=== PATIENT | female | born 1960 | race Caucasian/White ===

== ENCOUNTER 2020-08-15 08:02 | Outpatient (REF) | payer OTHER, SELFPAY ==
--- NOTE | ~2020-08-15 | US_ITS ---
EXAMINATION: US ABDOMEN COMPLETE CLINICAL INFORMATION: Acute abdominal pain. COMPARISON: None TECHNIQUE: Real-time imaging of the abdominal viscera. FINDINGS: PANCREAS: Normal. ABDOMINAL AORTA: The proximal, mid, and distal segments are normal in caliber. INFERIOR VENA CAVA: Visualized portions are normal. LIVER: Normal. The liver is normal in size. The liver contour is normal. Parenchymal echogenicity is normal. No focal hepatic lesion. There is no intrahepatic biliary duct dilatation seen. GALLBLADDER: Normal. The gallbladder is physiologically distended without evidence of stones, sludge, polyps, wall thickening or pericholecystic fluid. COMMON BILE DUCT: Normal in caliber measuring 0.2 cm in diameter. RIGHT KIDNEY: Normal. No hydronephrosis. No renal calculi or focal parenchymal lesions. The kidney measures 10.4 cm in maximum dimension. LEFT KIDNEY: Normal. No hydronephrosis. No renal calculi or focal parenchymal lesions. The kidney measures 11.7 cm in maximum dimension. SPLEEN: Normal. The spleen measures 9.3 cm in maximum dimension. FREE FLUID: None. US/US abdomen complete IMPRESSION: Unremarkable complete abdomen ultrasound.
[2020-08-15 09:37] LABS: MANUAL DIFF FLAG NO
[2020-08-15 09:45] LABS: Basophils Percent Auto 0.6 % (0-2); Eosinophils Absolute Auto 0.2 X10*3/uL (0.0-0.4); Eosinophils Percent Auto 4.7 % (0-4); Hematocrit 42.2 % (37-47); Hemoglobin 13.9 g/dl (12.0-16.0); Imm Gran Abs Auto 0.01 X10*3/uL (0.00-0.03); Imm Gran Pct Auto 0.2 % (0.0-0.4); Lymphocytes Percent Auto 38.5 % (20-40); Mean Corpuscular HGB Conc 32.9 g/dl (31.0-35.0); Mean Platelet Volume 10.6 fL (9.4-12.3); Monocytes Absolute Auto 0.5 X10*3/uL (0.1-1.2); Monocytes Percent Auto 9.9 % (2-11); Neutrophils Absolute Auto 2.4 X10*3/uL (2.0-8.3); Neutrophils Percent Auto 46.1 % (45-73); Platelet Count 235 X10*3/uL (160-400); Red Blood Count 4.35 X10*6/uL (4.20-5.50); Red Cell Distribution Width 12.1 % (11.0-16.0); White Blood Count 5.1 X10*3/uL (4.8-10.8)
[2020-08-15 10:36] LABS: Alanine Aminotransferase 14 U/L (0-31); Albumin Level 4.1 g/dL (3.5-5.0); Alkaline Phosphatase 65 U/L (39-117); Amylase 64 U/L (28-100); Aspartate Amino Transferase 20 U/L (5-31); Bilirubin Direct 0.3 mg/dL (0.0-0.5); Bilirubin Total 0.6 mg/dL (0.0-1.0); Total Protein 6.9 g/dL (6.5-8.0)
[2020-08-15 10:37] LABS: Lipase 16 U/L (8-78)
== END 2020-08-15 08:03 | disposition home or self-care (01) ==
LOC: HO.US 08:02
PROVIDERS: Visit Provider Internal Medicine
DX: R10.13 Epigastric pain (principal)
CPT/HCPCS: 36415; 76700; 80076; 82150; 83690; 85025

== ENCOUNTER 2020-08-22 06:33 | Day surgery (SDC) | payer OTHER, SELFPAY ==
[2020-08-15 15:31] VITALS: BMI 25.5
--- NOTE | 2020-08-20 14:39 | P.CONAN_ITS ---
Documented by User: Freya Neal 08/20/20 14:40 HPI - Anesthesia Eval Consult details Narrative: 60yo F for Upper Endoscopy and Colonoscopy [facility] Past Medical History Medical History Asthma Depression GERD (gastroesophageal reflux disease) Knee pain Osteoarthritis Surgical History Surgical History History of hand surgery History of tonsillectomy and adenoidectomy Hx of colonoscopy Social History Social History Are you a primary urgent care physician to a significant other at home: No Do you presently have visiting nurse or other home services: No Smoking Status: Former smoker Smoking Quit Date: years ago Use of substances other than those prescribed or required for medical reasons: No Have you been hit, kicked, punched, or otherwise hurt by someone within the past year? If so, by whom?: No Advance Directives: No Advance Directives Information Provided: No Advance Directives on File: No Recently lost weight without trying: No Meds Allergies Allergy/AdvReac Type Severity Reaction Status Date / Time environmental Allergy Unknown Wheezing Uncoded 08/15/20 15:30 Home Medications Medication Instructions Recorded Confirmed Last Taken Type bupropion HCl 1 tab PO QAM 08/15/20 08/15/20 Unknown History fluticasone propionate [Flonase] 1 spray INTRANASAL DAILY 08/15/20 08/15/20 Unknown History fluticasone propionate [Flovent 2 puff PO BID 08/15/20 08/15/20 Unknown History HFA] omeprazole 20 mg PO DAILY 08/15/20 08/15/20 Unknown History Exam Exam Date and Time: August 20, 2020 1439 Height,Weight and Vital Signs: Height 5 ft 10 in Weight 80.739 kg Assessment and Plan Assessment Anesthesia Assessment: Chart Reviewed Documented by User: Siri Gaines 08/22/20 07:26 [facility] Past Medical History Medical History Asthma Depression GERD (gastroesophageal reflux disease) Knee pain Osteoarthritis Surgical History Surgical History History of hand surgery History of tonsillectomy and adenoidectomy Hx of colonoscopy Social History Social History Are you a primary urgent care physician to a significant other at home: No Do you presently have visiting nurse or other home services: No Smoking Status: Former smoker Smoking Quit Date: years ago Use of substances other than those prescribed or required for medical reasons: No Have you been hit, kicked, punched, or otherwise hurt by someone within the past year? If so, by whom?: No Advance Directives: No Advance Directives Information Provided: No Advance Directives on File: No Recently lost weight without trying: No Meds Allergies Allergy/AdvReac Type Severity Reaction Status Date / Time environmental Allergy Unknown Wheezing Uncoded 08/15/20 15:30 Home Medications Medication Instructions Recorded Confirmed Last Taken Type bupropion HCl 1 tab PO QAM 08/15/20 08/15/20 Unknown History fluticasone propionate [Flonase] 1 spray INTRANASAL DAILY 08/15/20 08/15/20 Unknown History fluticasone propionate [Flovent 2 puff PO BID 08/15/20 08/15/20 Unknown History HFA] omeprazole 20 mg PO DAILY 08/15/20 08/15/20 Unknown History Exam Airway Mallampati Class: II (Small mouth) TM Dist: >3cm Neck ROM: Full Loose/Missing/Broken Teeth: No Heart: RRR Lungs: CTA Assessment and Plan Assessment Anesthesia Assessment: Anesthesia Plan Discussed and Chart Reviewed Final Anesthetic Review NPO: Yes ASA Class: II Final Preanesthetic Review: Meds/Allgs Chart Reviewed, Consent Obtained/Reviewed and Anes Risks/Benef Reviewed Patient Risk: Low Procedure Risk: Intermediate Anesthetic Plan Anesthetic Plan: MAC: Disposition: Standard PACU
[2020-08-22 06:46] VITALS: BP 125/63; PULSE 63; RESP 18; TEMP 35.9; O2SAT 100
[2020-08-22 06:59] VITALS: BMI 24.3
[2020-08-22] MEDS: Lactated Ringers 1,000 ML 100 ML IVCONT (06:59)
[2020-08-22 08:50] VITALS: BP 116/58; PULSE 53; RESP 16; TEMP 36.5; O2SAT 99
--- NOTE | 2020-08-22 08:53 | PM.OP ---
Brief Operative Note Date of Service: 08/22/20 Pre-op diagnosis: GERD, Screening Post-op diagnosis: other (Hiatal hernia, Mild gastritis, R/O celiac disease, Colon polyps) Procedure: EGD with biopsy, Colonoscopy to cecum and TI with snare polypectomy and Biopsy/Removal of polyp Surgeon: Humberto Pappas Anesthesia: MAC Estimated blood loss (mL): 4.0 Pathology: other (A. Descending duodenum B. Gastric antrum C. Transverse colon polyp D. Polyp at 60cm) Condition: stable Disposition: PACU
[2020-08-22 09:05] VITALS: BP 109/68; PULSE 57; RESP 16; TEMP 36.5; O2SAT 100
--- NOTE | 2020-08-22 09:33 | OP_ITS ---
SURGEON: Humberto Pappas MD INDICATIONS: The patient presents for evaluation of gastroesophageal reflux, nausea, abdominal discomfort, and colorectal cancer screening. Full consent obtained from her for both procedures, including risks of bleeding and perforation. PREOPERATIVE DIAGNOSIS: POSTOPERATIVE DIAGNOSIS: PROCEDURE PERFORMED: Esophagogastroduodenoscopy with biopsies, and colonoscopy to the cecum and terminal ileum with snare polypectomy, and biopsy and removal of polyp. ESTIMATED BLOOD LOSS: COMPLICATIONS: ANESTHESIA: Monitored anesthesia care. ASSISTANTS: SPECIMENS: PREOPERATIVE DIAGNOSES: Gastroesophageal reflux, abdominal discomfort, nausea, personal history of tubular adenoma of the colon, and colorectal cancer screening. POSTOPERATIVE DIAGNOSES: Gastroesophageal reflux, abdominal discomfort, nausea, personal history of tubular adenoma of the colon, and colorectal cancer screening, small hiatal hernia, mild gastritis, rule out celiac disease, colon polyps, diverticulosis, and internal hemorrhoids. DESCRIPTION OF PROCEDURE: The patient was placed in the left lateral decubitus position. The Olympus video gastroscope was passed in the posterior oropharynx and upper esophagus under direct vision. The scope was passed slowly into the distal esophagus. The gastroesophageal junction appeared normal at 38 cm. There was no sign of any esophagitis nor Banda's mucosa. There was a small hiatal hernia. The scope entered into the stomach and was advanced to the pylorus. The duodenum was cannulated to the descending portion. The duodenum including the bulb appeared normal other than some very minimal changes of duodenitis in the duodenal bulb with some erythema and edema. Multiple biopsies were obtained in the 2nd and 3rd portions of duodenum. The scope was withdrawn back into the stomach. The gastric antrum had some mild areas of erythema and edema, but no ulceration nor erosions. There was good peristalsis. The scope was retroflexed visualizing the proximal stomach carefully, which appeared normal, without any sign of mass or ulceration. Scope was straightened. Biopsies were obtained from the gastric antrum. The scope was withdrawn back into the esophagus. The esophageal mucosa appeared normal. The scope was withdrawn from the patient. She was turned around for colonoscopy. The digital rectal exam revealed no abnormalities. The Olympus video pediatric colonoscope was entered into the rectum and advanced easily to the cecum. Once in the cecum, I did identify normal-appearing cecal pouch with appendiceal orifice and a normal-appearing ileocecal valve. The terminal ileum was cannulated and appeared normal. The scope was withdrawn back in the colon. The entire cecum and ileocecal valve appeared normal. The scope was slowly withdrawn assessing all mucosal surfaces carefully. Preparation was excellent. In the transverse colon was a slightly raised approximately 6 to 8 mm adenomatous appearing polyp which was snared and recovered by suction. The polypectomy site appeared clean, without any sign of residual polyp nor bleeding. At 60 cm, was an approximately 3 or 4 mm polyp, which was biopsied and completely removed with cold biopsy forceps. I did not visualize any other polyps, colitis, or angiodysplasia. There was a mild amount of sigmoid diverticulosis. In the rectum, scope was retroflexed visualizing small internal hemorrhoids, but no other pathology. The rectal mucosa appeared normal. The scope was straightened out and withdrawn from the patient. She tolerated both procedures well and was returned to recovery area in stable condition. IMPRESSION: 1. Small hiatal hernia. 2. Rule out celiac disease. 3. Minimal duodenitis. 4. Mild gastritis. 5. Colon polyps. 6. Diverticulosis. 7. Internal hemorrhoids. PLAN: The results of the pathology will be checked. I would recommend a repeat colonoscopy in 5 years for further surveillance. She was advised not to use any aspirin and NSAIDs for 1 week. She will continue her daily omeprazole. Recent workup for the abdominal discomfort was negative including laboratories and ultrasound. I will see her in 2 to 3 months for a followup visit. If Helicobacter pylori is present in gastric biopsies, we could consider treating that if her symptoms persist. MD ABBE Paiz/JOSE / [id number]
== END 2020-08-22 09:43 | disposition home or self-care (01) ==
PROVIDERS: PCP Family Medicine; Visit Provider Internal Medicine
PROC: (CPT 45385; principal; 2020-08-22 07:30)
DX: Z12.11 Encounter for screening for malignant neoplasm of colon (principal); Z86.010 Personal history of colon polyps; D12.3 Benign neoplasm of transverse colon; D12.4 Benign neoplasm of descending colon; K57.30 Diverticulosis of large intestine without perforation or abscess without bleeding; K64.8 Other hemorrhoids; K21.9 Gastro-esophageal reflux disease without esophagitis; K29.70 Gastritis, unspecified, without bleeding; K44.9 Diaphragmatic hernia without obstruction or gangrene; J45.909 Unspecified asthma, uncomplicated; F32.9 Major depressive disorder, single episode, unspecified; Z79.51 Long term (current) use of inhaled steroids; Z79.899 Other long term (current) drug therapy; Z87.891 Personal history of nicotine dependence
CPT/HCPCS: 45385; 45380; 43239; 88305; 88342; J3010

== ENCOUNTER → 2021-02-20 14:10 | Outpatient (BNVA) | payer OTHER, SELFPAY | PROVIDERS: PCP Family Medicine; Visit Provider Anesthesiology ==

== ENCOUNTER 2021-03-05 07:53 | Outpatient (REF) | payer OTHER, SELFPAY ==
--- NOTE | ~2021-03-05 | MM_ITS ---
EXAMINATION: MM SCREENING DIGITAL BREAST TOMOSYNTHESIS, BILATERAL CLINICAL INFORMATION: Screening. Asymptomatic. The lifetime risk of breast cancer based on the Tyrer-Cuzick Model is 20.6%. Additional annual screening with breast MRI may be of benefit in women with a Score of 20% or greater. COMPARISON: Mammography: November 09, 2019 and studies dating back to April 30, 2012 TECHNIQUE: Digital breast tomosynthesis is performed in both the craniocaudal and mediolateral oblique views along with computer-aided detection (CAD). Synthesized 2D images are generated from the tomosynthesis. FINDINGS: There are scattered areas of fibroglandular density (ACR BI-RADS breast composition Category b). There are no significant masses, abnormal calcifications, or other abnormalities. MM/MM tomosynthesis screening BI IMPRESSION: There are no significant changes from prior study. ASSESSMENT: BI-RADS 1: Negative RECOMMENDATION: Routine annual mammography screening. This patient's information was entered into a reminder system with a target due date for their next mammogram.
== END 2021-03-05 07:54 | disposition home or self-care (01) ==
LOC: HO.MAMMO 07:53
PROVIDERS: Visit Provider Family Medicine
DX: Z12.31 Encounter for screening mammogram for malignant neoplasm of breast (principal)
CPT/HCPCS: 77063; 77067

== ENCOUNTER 2021-08-28 09:21 | Outpatient (REF) | payer OTHER, SELFPAY ==
--- NOTE | 2021-08-28 16:09 | MHC.AU.ANR ---
Adult Audiological Evaluation Date of Visit: 08/28/21 Reason for Appointment: Audiological evaluation due to concern for decreased hearing. Matilda feels her hearing is gradually getting worse. She notes that she has to turn the volume of the TV up and doesn't always hear what people say clearly. She notes a longstanding history of hearing loss since she was a teenager, but feels the tinnitus is gradually getting worse. Does patient feel they have a hearing loss?: Yes If Yes, Which Ear?: Both Ears Has hearing been tested previously?: No Hearing Handicap Inventory: HHIE SCORE: 12 Based on HHIE score, patient has: Mild to moderate perceived hearing handicap Ear History: Family History of Hearing Loss?: Yes: Father, sister History of Ear Wax Buildup: Both Ears Bothersome Tinnitus/Ringing/Noises in Ears: Both Ears Blocked/Full Sensation in Ear(s): Occasionally Medical History: Medical History: Headache, Measles, Tobacco Use, Skin cancer, Tonsillectomy and adenoidectomy in 1964 Allergies: Environmental Medication List: Wellbutrin, Zyrtec, omeprazole, multivitamin Otoscopy: Right Ear: Unremarkable Left Ear: Unremarkable Tympanometry: Tympanometry performed due to: History of allergies/congestion Right Ear: Normal Middle Ear System (Type A) Left Ear: Normal Middle Ear System (Type A) Hearing Evaluation: Transducer(s) Used: Insert Earphones, Bone Conduction Method: Conventional Audiometry Stimuli Used: Pure Tones Right Ear: Description of Hearing: Normal hearing from 250-3000 Hz, sloping to a mild to moderate sensorineural hearing loss from 0995-0971 Hz. Hearing in the right ear is worse than the left by 10 dBHL at 6000 Hz and 20 dBHL at 8000 Hz. Left Ear: Description of Hearing: Normal hearing from 250-8000 Hz. Speech Recognition Threshold (SRT): Method Used: Monitored Live Voice Stimuli Used: Spondee Words Right Ear: 10 dBHL Left Ear: 10 dBHL Word Discrimination: Method: Recorded Lists Word Lists Used: NU-6 Right Ear: 100% at 50 dBHL Left Ear: 100% at 50 dBHL QuickSIN: 2 dB SNR loss when presented binaurally at 50 dBHL, scoring with in the normal range for [id number] understanding. Interpretation of Results: Mild to moderate high-frequency sensorineural hearing loss in the right ear, with normal hearing in the left ear. Slight asymmetry should be monitored. Recommendations: Audiological re-evaluation in one year. Amplification is not warranted at this time. Diagnosis: Primary Diagnosis: H90.41 SNHL Unilateral Right Ear, W/Unrestricted Contralateral Hearing Secondary Diagnosis: H93.13 Tinnitus, Bilateral Services Performed: Services Performed: Comprehensive Audiological Evaluation (CPT 73027) Tympanometry (CPT 03015) Unlisted Otorhinolaryngological Service or Procedure (CPT 21467) Signature: Provider: Donovan Brady, CCC-A
== END 2021-08-28 09:22 | disposition home or self-care (01) ==
LOC: HO.SH 09:21
PROVIDERS: Visit Provider Family Medicine
DX: Z01.118 Encounter for examination of ears and hearing with other abnormal findings (principal); H90.41 Sensorineural hearing loss, unilateral, right ear, with unrestricted hearing on the contralateral side
CPT/HCPCS: 92557; 92567; 92700

== ENCOUNTER 2021-10-04 08:14 | Outpatient (REF) | payer OTHER, SELFPAY ==
--- NOTE | ~2021-10-04 | MM_ITS ---
EXAMINATION: BONE DENSITOMETRY CLINICAL INDICATION: Estrogen deficiency. COMPARISON: This is the patient's baseline examination. TECHNIQUE: Using a [employer] DXA System (software version: 13.1) manufactured by [employer], dual-energy x-ray absorptiometry was performed of the lumbar spine and left hip. The images are of good technical quality. Summary results are attached. FINDINGS: AP SPINE L1-L4: BMD 1.101 g/cm2, Z-score 0.2, T-score -0.7, normal. LEFT FEMUR, NECK: BMD 0.768 g/cm2, Z-score -0.9, T-score -1.9, osteopenia. LEFT FEMUR, TOTAL: BMD 0.756 g/cm2, Z-score -1.3, T-score -2.0, osteopenia. IDENTIFIED RISK FACTORS: Menopause, family history (parental hip fracture). HISTORY OF FRACTURE: None listed. MEDICATIONS: Calcium or multivitamin. MM/XR DEXA axial skeleton IMPRESSION: 1. DIAGNOSIS: Osteopenia based on the lowest T-score value of -2.0 in the total femur applying World Health Organization criteria. 2. 10-YEAR FRACTURE RISK PREDICTION, FRAX: Major osteoporotic fracture (clinical spine, forearm, hip or shoulder) 19.4%. Hip fracture 1.5%. 3. Treatment Recommendations: NOF guidelines recommend consideration for treatment in postmenopausal women and men age 50 and older presenting with the following: -A hip or vertebral (clinical or morphometric) fracture. -T-score less than or equal to -2.5 at the femoral neck or spine after appropriate evaluation to exclude secondary causes. -Low bone mass at the hip or spine and a 10-year fracture probability by FRAX of greater than or equal to 3% for hip fracture or greater than or equal to 20% for major osteoporotic fracture based on the [place] adapted WHO algorithm. 4. Other Recommendations: All treatment decisions require clinical judgment and consideration of individual patient factors, including patient preferences, comorbidities, previous drug use, risk factors not captured in the FRAX model (e.g. frailty, falls, vitamin D deficiency, increased bone turnover, interval significant decline in bone density) and possible under or overestimation of fracture risk by FRAX. Additional medical evaluation for secondary cause of low bone mineral density may be appropriate. FUTURE SCAN RECOMMENDATION: People with diagnosed cases of osteoporosis or at high risk for fracture should have regular bone mineral density tests. For patients eligible for Medicare, routine testing is allowed once every 2 years. The testing frequency can be increased to one year for patients who have rapidly progressing disease, those who are receiving or discontinuing medical therapy to restore bone mass, or have additional risk factors.
== END 2021-10-04 08:15 | disposition home or self-care (01) ==
LOC: HO.MAMMO 08:14
PROVIDERS: Visit Provider Family Medicine
DX: Z13.820 Encounter for screening for osteoporosis (principal); Z78.0 Asymptomatic menopausal state; M85.80 Other specified disorders of bone density and structure, unspecified site
CPT/HCPCS: 77080

== ENCOUNTER 2021-10-09 13:12 | Outpatient (REF) | payer OTHER, SELFPAY ==
--- NOTE | ~2021-10-09 | US_ITS ---
EXAMINATION: US PELVIS CLINICAL INFORMATION: Pelvic pain. COMPARISON: None TECHNIQUE: Ultrasound of the pelvis is performed using both transabdominal and transvaginal transducers along with Doppler. Transvaginal imaging is performed due to inadequate visualization transabdominally. FINDINGS: UTERUS: The uterus is retroverted and measures 5.5 cm in length, 2.4 cm in AP and 3.3 cm in transverse dimension. The double wall endometrial thickness is 15 mm. The uterus is smooth in contour and has normal myometrial echogenicity. There is a solitary hypoechoic lesion in the posterior fundal region measuring 0.9 x 0.8 x 0.8 cm. No additional lesions seen. ADNEXA: Both ovaries are visualized. There is normal color flow to the adnexa. There is no ovarian torsion. There is no pelvic ascites or fluid collection. Right ovary measures 1.9 x 1.3 x 1.0 cm. Volume 1.2 mL. Left ovary measures 2.1 x 1.3 x 1.4 cm. Volume 1.9 mL. There is no free fluid fluid seen within the cul-de-sac. US/US pelvic and transvaginal IMPRESSION: 1. Small uterine fibroid. The retroverted uterus otherwise is unremarkable. 2. The ovaries are unremarkable.
[2021-10-09 14:58] LABS: Alanine Aminotransferase 25 U/L (0-31); Alkaline Phosphatase 78 U/L (39-117); Anion Gap 11 (12-20); Aspartate Amino Transferase 21 U/L (5-31); Bilirubin Total 0.5 mg/dL (0.0-1.0); Blood Urea Nitrogen 11 mg/dL (9-16); Calcium 9.8 mg/dL (8.4-10.2); Carbon Dioxide 28 mmol/L (22-29); Chloride 105 mmol/L (96-108); Cholesterol 253 mg/dL; Estimated Glomerular Filt Rate > 60; Glucose Random 104 mg/dL (60-115); HDL Cholesterol 86 mg/dL; LDL Cholesterol Calculated 151 mg/dl; Potassium 4.6 mmol/L (3.3-5.1); Sodium 139 mmol/L (135-145); Total Protein 7.3 g/dL (6.5-8.0); Triglycerides 83 mg/dL
== END 2021-10-09 13:13 | disposition home or self-care (01) ==
LOC: HO.US 13:12
PROVIDERS: Visit Provider Family Medicine
DX: R10.2 Pelvic and perineal pain (principal)
CPT/HCPCS: 36415; 76830; 76856; 80053; 80061

== ENCOUNTER 2022-03-11 07:53 | Outpatient (REF) | payer OTHER, SELFPAY ==
--- NOTE | ~2022-03-11 | MM_ITS ---
EXAMINATION: MM SCREENING DIGITAL BREAST TOMOSYNTHESIS, BILATERAL CLINICAL INFORMATION: Screening. Asymptomatic. Family history breast cancer, mother age 80s. The lifetime risk of breast cancer based on the Tyrer-Cuzick Model is 22%. COMPARISON: Mammography: 03/05/2021, 11/09/2019, 08/05/2018 TECHNIQUE: Digital breast tomosynthesis is performed in both the craniocaudal and mediolateral oblique views along with computer-aided detection (CAD). Synthesized 2D images are generated from the tomosynthesis. FINDINGS: There are scattered areas of fibroglandular density (ACR BI-RADS breast composition Category b). There are no significant masses, abnormal calcifications, or other abnormalities. Parenchymal pattern is similar to prior studies. The axilla and skin contours are unremarkable. No significant changes. MM/MM tomosynthesis screening BI IMPRESSION: No mammographic evidence of malignancy. ASSESSMENT: BI-RADS 1: Negative RECOMMENDATION: Routine annual mammography screening. This patient's information was entered into a reminder system with a target due date for their next mammogram.
== END 2022-03-11 07:54 | disposition home or self-care (01) ==
LOC: HO.MAMMO 07:53
PROVIDERS: Visit Provider Family Medicine
DX: Z12.31 Encounter for screening mammogram for malignant neoplasm of breast (principal)
CPT/HCPCS: 77063; 77067

== ENCOUNTER 2022-05-12 15:16 | Outpatient (REF) | payer OTHER, SELFPAY | END 2022-05-12 15:17 | disposition home or self-care (01) | LOC: HO.XRAY 15:16 | PROVIDERS: PCP Family Medicine; Visit Provider Nurse Practitioner Primary Care | DX: M79.642 Pain in left hand (principal) | CPT/HCPCS: 73130 ==

== ENCOUNTER 2022-06-17 09:58 | Outpatient (REF) | payer OTHER, SELFPAY ==
--- NOTE | ~2022-06-17 | XR_ITS ---
EXAMINATION: XR HAND, LEFT CLINICAL INFORMATION: 3rd and 4th digit pain. COMPARISON: Most recent left hand radiographs dated 05/12/2022. TECHNIQUE: PA, lateral, and oblique views of the left hand. FINDINGS: There appears to be interval healing of the previously seen avulsion fracture at the dorsal base of the 3rd distal phalanx. No acute, displaced fracture. Third distal interphalangeal joint space narrowing with marginal osteophytes appears similar when compared to the prior examination. No osseous erosion. No abnormal soft tissue calcification. XR/XR hand LT min 3V IMPRESSION: 1. Interval healing of the previously seen avulsion fracture at the dorsal base of the 3rd distal phalanx. 2. [id number] degenerative arthritis at the 3rd distal interphalangeal joint, unchanged.
== END 2022-06-17 09:59 | disposition home or self-care (01) ==
LOC: HO.HOSX 09:58
PROVIDERS: PCP Family Medicine; Visit Provider Orthopaedic Surgery
DX: S62.633A Displaced fracture of distal phalanx of left middle finger, initial encounter for closed fracture (principal); S62.623A Displaced fracture of middle phalanx of left middle finger, initial encounter for closed fracture
CPT/HCPCS: 73130

== ENCOUNTER → 2022-09-24 08:22 | Outpatient (BNVA) | payer OTHER, SELFPAY | PROVIDERS: PCP Family Medicine; Visit Provider Orthopaedic Surgery | DX: Z13.89 Encounter for screening for other disorder (principal) ==

== ENCOUNTER 2022-12-03 10:00 | Outpatient (RCR) | payer OTHER, SELFPAY ==
--- NOTE | 2022-10-08 09:56 | MHC.OT.EP ---
[address] [phone] Occupational Therapy Plan of Care Patient Name: Matilda Ray Date of Evaluation: 10/08/22 Diagnosis: Left hand D3, D4, D5 fxs s/p fall Pain Location: 3/10 resting pain in digits (D3 > D4 > D5) 8/10 sharp pain w/ heavier use Pain Score: 3 Pain Scale Used: Aggravating Factors: Gripping, lifting, extending and closing digits Alleviating Factors: Occasionally use of ibuprophen before sleep Assessment: 62 yo female fell 04/18/23 while walking her dog and went to her PCP about three weeks after that w/ persistent pain in left hand. She followed up with Dr Kirkpatrick and x-rays showed multiple fractures including D3 distal phalanx minimally displaced fx, D4 avulsion fx at MCP head and D5 mid phalanx minimally displaced fx. No surgical intervention required. Pt returned in September w/ reported left hand weakness and has now been referred to OT. On assessment, she continues to report low to moderate pain in left hand, primarily in long finger PIP and worse with lifting and gripping. Range in long finger is about 1 cm tip-palm w/ more intrinsic tightness noted as well. Able to bring other fingers tip-palm and gross grasp is 50lb w/ slight pain only. She is very motivated and will benefit from cont'd therapy services to progress range, strength and functional use of left hand w/ daily activities. Frequency and Duration: The patient will be seen 2x/wk for 4 weeks Short Term Goals: Ind w/ HEP Ind w/ appropriate use of ice/heat modalities Pt to demo full tip-palm in long finger w/ ease Office Messenger Helper Goals: Full hook fist in left hand Pt to demo good use of all digits w/ FMC tasks Pain free in left hand at rest Pt to report pain <3/10 w/ heavier daily activities Treatment Plan: Therapeutic Exercise Therapeutic Activity Home Exercise Program Splinting Patient Education Edema Control ADL Training Ultrasound Paraffin Fluidotherapy MHP Cold Packs Joint Mobilization Soft Tissue Mobilization Kinesiotaping Electronically Signed By: Ary Montenegro, OTR/L CHT Please Sign and return to therapist. Thank you once again for your referral.
--- NOTE | 2022-12-03 10:38 | MHC.OT.DC ---
[address] [phone] F: [phone] Occupational Therapy Discharge Note Patient Name: Matilda Ray Provider: Dr Gisel Kirkpatrick Diagnosis: Left hand D3, D4, D5 fxs s/p fal Date of Evaluation: 10/08/22 Date of Discharge: 12/03/22 Treatments to Date: 8 Discharge Status: Achieved Goals Improved Function Independent with HEP Discharge Summary: Matilda was seen for left D3, D4 and D5 fractures s/p fall. She has done very well. All therapy goals met, good follow through w/ HEP and good functional range and strength, no daily limitations or reported pain. Electronically Signed By: JACQUELINE Wolf/Ritu CHT Reviewed/agree with student documentation: Therapist: Please Sign and return to therapist, thank you for your referral.
== END 2022-12-03 10:39 | disposition home or self-care (01) ==
LOC: HO.OT 10:00
PROVIDERS: PCP Family Medicine; Visit Provider Orthopaedic Surgery
DX: S62.633A Displaced fracture of distal phalanx of left middle finger, initial encounter for closed fracture (principal); S62.623A Displaced fracture of middle phalanx of left middle finger, initial encounter for closed fracture; M25.642 Stiffness of left hand, not elsewhere classified
CPT/HCPCS: 97018; 97110; 97140; 97165

== ENCOUNTER 2022-12-29 12:23 | Outpatient (REF) | payer OTHER, SELFPAY | END 2022-12-29 12:24 | disposition home or self-care (01) | LOC: HO.HOSX 12:23 | PROVIDERS: Visit Provider Orthopaedic Surgery | DX: Z13.89 Encounter for screening for other disorder (principal) ==

== ENCOUNTER → 2023-03-17 07:30 | Outpatient (BNV) | payer OTHER, SELFPAY | PROVIDERS: PCP Family Medicine; Visit Provider Radiology Diagnostic Radiology | DX: Z12.31 Encounter for screening mammogram for malignant neoplasm of breast (principal) | CPT/HCPCS: 77063; 77067 ==

== ENCOUNTER 2023-03-17 07:31 | Outpatient (REF) | payer OTHER, SELFPAY | END 2023-03-17 07:32 | disposition home or self-care (01) | LOC: HO.MAMMO 07:31 | PROVIDERS: PCP Family Medicine; Visit Provider Family Medicine | DX: Z12.31 Encounter for screening mammogram for malignant neoplasm of breast (principal) | CPT/HCPCS: 77063; 77067 ==